=== PATIENT | female | born 1935 | race Caucasian/White ===

== ENCOUNTER 2017-10-31 12:48 | Emergency (ER) | payer OTHER ==
[~2017-10-31] VITALS: Ht 172.7 cm; Wt 77.1 kg
[2017-10-31 13:10] VITALS: BP_SYST 140
[2017-10-31 15:00] VITALS: BP_SYST 128
== END 2017-10-31 15:00 | disposition home or self-care (01) ==
LOC: SED 12:48
DX: R11.10 Vomiting, unspecified (principal); F03.90 Unspecified dementia, unspecified severity, without behavioral disturbance, psychotic disturbance, mood disturbance, and anxiety; R03.0 Elevated blood-pressure reading, without diagnosis of hypertension
CPT/HCPCS: 71045; 99283